=== PATIENT | female | born 1990 | race American Indian/Alaskan Native ===

== ENCOUNTER 2017-06-23 01:51 | Emergency (ER) | payer BC ==
--- NOTE | 2017-06-23 05:21 | Emergency Department Report ---
ED ENT HPI - General Chief complaint: Earache Stated complaint: RT EARACHE Time Seen by Provider: 06/23/17 05:17 Source: patient Mode of arrival: Ambulatory Limitations: No Limitations - History of Present Illness Initial comments: 26-year-old -[place] female comes in with a complaint of right ear pain that started last night. Patient reports that the earache woke her up from sleep. She has no past medical history currently takes no medication and has no known drug allergies. Patient did not take any pain medication prior to arrival. MD complaint: ear pain -: During the night Location: R ear Severity: severe Severity scale (0 -10): 10 Quality: stabbing, constant Consistency: constant Improves with: none Worsens with: none - Related Data Previous Rx's Medication Instructions Recorded Last Taken Type Amoxicillin/K Clav Tab [Augmentin 1 tab PO Q12HR #20 tab 06/23/17 Unknown Rx 875 mg] Ibuprofen 800 mg PO Q8H #30 tablet 06/23/17 Unknown Rx Allergies Allergy/AdvReac Type Severity Reaction Status Date / Time blueberry Allergy Hives Verified 06/23/17 02:11 ED Dental HPI - General Chief complaint: Earache Stated complaint: RT EARACHE Time Seen by Provider: 06/23/17 05:17 Source: patient Mode of arrival: Ambulatory Limitations: No Limitations - Related Data Previous Rx's Medication Instructions Recorded Last Taken Type Amoxicillin/K Clav Tab [Augmentin 1 tab PO Q12HR #20 tab 06/23/17 Unknown Rx 875 mg] Ibuprofen 800 mg PO Q8H #30 tablet 06/23/17 Unknown Rx Allergies Allergy/AdvReac Type Severity Reaction Status Date / Time blueberry Allergy Hives Verified 06/23/17 02:11 ED Review of Systems ROS: Stated complaint: RT EARACHE Other details as noted in HPI Constitutional: denies: chills, fever Eyes: denies: eye pain, eye discharge, vision change ENT: ear pain (right). denies: throat pain Respiratory: denies: cough, shortness of breath, wheezing Cardiovascular: denies: chest pain, palpitations Endocrine: no symptoms reported Gastrointestinal: denies: abdominal pain, nausea, diarrhea Genitourinary: denies: urgency, dysuria, discharge Musculoskeletal: denies: back pain, joint swelling, arthralgia Skin: denies: rash, lesions Neurological: denies: headache, weakness, paresthesias Psychiatric: denies: anxiety, depression Hematological/Lymphatic: denies: easy bleeding, easy bruising ED Past Medical Hx - Past Medical History Previous Medical History?: Yes Additional medical history: Lupus - Surgical History Past Surgical History?: Yes Additional Surgical History: tonsilectomy - Social History Smoking Status: Current Every Day Smoker Substance Use Type: Marijuana - Medications Home Medications: Home Medications Medication Instructions Recorded Confirmed Last Taken Type Amoxicillin/K Clav Tab [Augmentin 1 tab PO Q12HR #20 tab 06/23/17 Unknown Rx 875 mg] Ibuprofen 800 mg PO Q8H #30 tablet 06/23/17 Unknown Rx ED Physical Exam - General Limitations: No Limitations General appearance: alert, in no apparent distress, other (tearful) - Head Head exam: Present: atraumatic, normocephalic - Eye Eye exam: Present: normal appearance - ENT ENT exam: Present: mucous membranes moist - Expanded ENT Exam Expanded TM/Canal exam: Erythema: Right TM, Bulging: Right TM, Effusion: Right TM, Loss of Landmarks: Right TM Throat exam: Positive: normal inspection - Neck Neck exam: Present: normal inspection - Respiratory Respiratory exam: Present: normal lung sounds bilaterally. Absent: respiratory distress - Cardiovascular Cardiovascular Exam: Present: regular rate, normal rhythm. Absent: systolic murmur, diastolic murmur, rubs, gallop - GI/Abdominal GI/Abdominal exam: Present: soft, normal bowel sounds - Extremities Exam Extremities exam: Present: normal inspection - Back Exam Back exam: Present: normal inspection - Neurological Exam Neurological exam: Present: alert, oriented X3 - Psychiatric Psychiatric exam: Present: normal affect, normal mood - Skin Skin exam: Present: warm, dry, intact, normal color. Absent: rash ED Course Vital Signs 06/23/17 02:11 Temperature 98.5 F Pulse Rate 86 Respiratory 18 Rate Blood Pressure 119/81 O2 Sat by Pulse 99 Oximetry ED Medical Decision Making - Medical Decision Making Patient has been evaluated by this provider fast track. Patient has a severe otitis media of her right ear.. I discussed the patient we'll place her on antibiotics and pain medication. Also we'll refer patient to a primary care provider. Patient verbalize understanding Critical care attestation.: If time is entered above; I have spent that time in minutes in the direct care of this critically ill patient, excluding procedure time. ED Disposition Clinical Impression: Otitis media with effusion Qualifiers: Laterality: right Qualified Code(s): H65.91 - Unspecified nonsuppurative otitis media, right ear Disposition: TO HOME OR SELFCARE Is pt being admited?: No Does the pt Need Aspirin: No Condition: Stable Instructions: Otitis Media (ED) Additional Instructions: Take antibiotics as prescribed. Complete antibiotics as prescribed. Take pain medication as prescribed follow up with the primary care provider. Prescriptions: Amoxicillin/K Clav Tab [Augmentin 875 mg] 1 tab PO Q12HR #20 tab Ibuprofen 800 mg PO Q8H #30 tablet Referrals: CHARLES ROLDAN MD [Primary Care Provider] - 3-5 Days [facility] [Provider Group] - 3-5 Days Forms: Work/School Release Form(ED)
[2017-06-23] MEDS: MOTRIN PO ONE (05:29)
[2017-06-23 05:35] VITALS: BP 121/80
== END 2017-06-23 05:35 | disposition home or self-care (01) ==
LOC: ED 01:51
DX: H65.91 Unspecified nonsuppurative otitis media, right ear (principal); F17.200 Nicotine dependence, unspecified, uncomplicated; F12.10 Cannabis abuse, uncomplicated; Z90.89 Acquired absence of other organs; M32.9 Systemic lupus erythematosus, unspecified; Z91.018 Allergy to other foods
CPT/HCPCS: 99282

== ENCOUNTER 2017-12-12 17:58 | Emergency (ER) | payer SELFPAY ==
[2017-12-12 21:10] VITALS: BP 124/84
--- NOTE | 2017-12-12 22:30 | Emergency Department Report ---
ED ENT HPI - General Chief complaint: Sore Throat Stated complaint: BODY ACHES Time Seen by Provider: 12/12/17 21:51 Source: patient Mode of arrival: Ambulatory Limitations: No Limitations - History of Present Illness Initial comments: This is a 27-year-old -[place] female who presents with sore throat, cough, and body aches for 2 days. Patient states she wants will pool green party on Monday and woke up the next morning with sore throat and chest discomfort. Patient states she is taking [id number] Tylenol and TheraFlu with no improvement of symptoms. Patient states when she leans forward she spell in a herron of pressure to frontal low and back. Patient states her entire body is achy and she is also having some ringing in both ears. Patient denies shortness of breath, nausea or vomiting, difficulty swallowing, drooling. MD complaint: sore throat Onset/Timin -: days(s) Location: nose (congestion) Severity: moderate Severity scale (0 -10): 7 Quality: aching Consistency: intermittent Improves with: none Worsens with: swallowing, eating Associated Symptoms: fever, cough, sore throat, tinnitus, rhinorrhea. denies: hearing loss, discharge from ear - Related Data Previous Rx's Medication Instructions Recorded Last Taken Type Amoxicillin/K Clav Tab [Augmentin 1 tab PO Q12HR #20 tab 06/23/17 Unknown Rx 875 mg] Ibuprofen 800 mg PO Q8H #30 tablet 06/23/17 Unknown Rx Benzonatate [Tessalon Perle] 100 mg PO TID PRN #30 capsule 12/12/17 Unknown Rx Cetirizine HCl [Zyrtec] 10 mg PO DAILY #30 tablet 12/12/17 Unknown Rx Fluticasone [Flonase] 1 spray NS QDAY #1 bottle 12/12/17 Unknown Rx Guaifenesin/Pseudoephedrne HCl 1 each PO BID #10 tab.er.12h 12/12/17 Unknown Rx [Mucinex D ER 600-60 mg Tablet] Allergies Allergy/AdvReac Type Severity Reaction Status Date / Time blueberry Allergy Hives Verified 12/12/17 18:04 ED Dental HPI - General Chief complaint: Sore Throat Stated complaint: BODY ACHES Time Seen by Provider: 12/12/17 21:51 Source: patient Mode of arrival: Ambulatory Limitations: No Limitations - Related Data Previous Rx's Medication Instructions Recorded Last Taken Type Amoxicillin/K Clav Tab [Augmentin 1 tab PO Q12HR #20 tab 06/23/17 Unknown Rx 875 mg] Ibuprofen 800 mg PO Q8H #30 tablet 06/23/17 Unknown Rx Benzonatate [Tessalon Perle] 100 mg PO TID PRN #30 capsule 12/12/17 Unknown Rx Cetirizine HCl [Zyrtec] 10 mg PO DAILY #30 tablet 12/12/17 Unknown Rx Fluticasone [Flonase] 1 spray NS QDAY #1 bottle 12/12/17 Unknown Rx Guaifenesin/Pseudoephedrne HCl 1 each PO BID #10 tab.er.12h 12/12/17 Unknown Rx [Mucinex D ER 600-60 mg Tablet] Allergies Allergy/AdvReac Type Severity Reaction Status Date / Time blueberry Allergy Hives Verified 12/12/17 18:04 ED Review of Systems ROS: Stated complaint: BODY ACHES Other details as noted in HPI Constitutional: denies: chills, fever ENT: throat pain, congestion. denies: ear pain, dental pain, hearing loss, epistaxis Respiratory: cough. denies: shortness of breath, wheezing Cardiovascular: denies: chest pain, palpitations Gastrointestinal: denies: abdominal pain, nausea, diarrhea Musculoskeletal: myalgia (generalized body aches). denies: back pain, joint swelling, arthralgia Skin: denies: rash, lesions Neurological: denies: headache, weakness, paresthesias Psychiatric: denies: anxiety, depression ED Past Medical Hx - Past Medical History Previous Medical History?: No Additional medical history: Lupus - Surgical History Additional Surgical History: tonsilectomy - Social History Smoking Status: Current Every Day Smoker Substance Use Type: Alcohol, Marijuana - Medications Home Medications: Home Medications Medication Instructions Recorded Confirmed Last Taken Type Amoxicillin/K Clav Tab [Augmentin 1 tab PO Q12HR #20 tab 06/23/17 Unknown Rx 875 mg] Ibuprofen 800 mg PO Q8H #30 tablet 06/23/17 Unknown Rx Benzonatate [Tessalon Perle] 100 mg PO TID PRN #30 capsule 12/12/17 Unknown Rx Cetirizine HCl [Zyrtec] 10 mg PO DAILY #30 tablet 12/12/17 Unknown Rx Fluticasone [Flonase] 1 spray NS QDAY #1 bottle 12/12/17 Unknown Rx Guaifenesin/Pseudoephedrne HCl 1 each PO BID #10 tab.er.12h 12/12/17 Unknown Rx [Mucinex D ER 600-60 mg Tablet] ED Physical Exam - General Limitations: No Limitations General appearance: alert, in no apparent distress - ENT ENT exam: Present: normal orophraynx (erythematous posterior pharynx), mucous membranes moist, TM's normal bilaterally, other (turbinates mildly congested with clear discharge) - Neck Neck exam: Present: normal inspection - Respiratory Respiratory exam: Present: normal lung sounds bilaterally, other (cough worse on right). Absent: respiratory distress - Cardiovascular Cardiovascular Exam: Present: regular rate, normal rhythm. Absent: systolic murmur, diastolic murmur, rubs, gallop - GI/Abdominal GI/Abdominal exam: Present: soft, normal bowel sounds - Neurological Exam Neurological exam: Present: alert, oriented X3 - Psychiatric Psychiatric exam: Present: normal affect, normal mood - Skin Skin exam: Present: warm, dry, intact, normal color. Absent: rash ED Course Vital Signs 12/12/17 12/12/17 12/12/17 18:04 21:08 21:34 Temperature 99.8 F H 99.6 F 99.6 F Pulse Rate 98 H 96 H 96 H Respiratory 18 16 16 Rate Blood Pressure 130/87 124/84 Blood Pressure 124/84 [Left] O2 Sat by Pulse 99 97 Oximetry ED Medical Decision Making - Lab Data Lab Results 12/12/17 Range/Units 21:35 Influenza A (Rapid) Negative (Negative) Influenza B (Rapid) Negative (Negative) Group A Strep Rapid Negative (Negative) - Medical Decision Making Patient was examined by myself in fast track. Vitals are normal and patient is in no acute distress. Obtained a rapid strep and rapid flu. Rapid strep and flu negative. Patient informed of results. Start Flonase, benzonatate, Mucinex DM, and cetirizine. Plan discussed with patient to discharge home and treat outpatient. Patient discharged home in stable condition. Follow up with PCP in 2-3 days. Critical care attestation.: If time is entered above; I have spent that time in minutes in the direct care of this critically ill patient, excluding procedure time. ED Disposition Clinical Impression: Viral syndrome Upper respiratory infection Qualifiers: URI type: acute nasopharyngitis (common cold) Qualified Code(s): J00 - Acute nasopharyngitis [common cold] Disposition: - TO HOME OR SELFCARE Is pt being admited?: No Does the pt Need Aspirin: No Condition: Stable Instructions: Upper Respiratory Infection (ED), Viral Syndrome (ED) Additional Instructions: Increase fluid intake and rest. Wash hands frequently. Continue taking tylenol or ibuprofen to control fever. F/U with Primary Care Provider. Return to ER if fever, SOB, or difficulty breathing after 48 hours of supportive care. Prescriptions: Benzonatate [Tessalon Perle] 100 mg PO TID PRN #30 capsule PRN Reason: Cough Cetirizine HCl [Zyrtec] 10 mg PO DAILY #30 tablet Fluticasone [Flonase] 1 spray NS QDAY #1 bottle Guaifenesin/Pseudoephedrne HCl [Mucinex D ER 600-60 mg Tablet] 1 each PO BID # 10 tab.er.12h Referrals: KRISHNA FONTANEZ MD [Staff Physician] - 3-5 Days [facility] [Outside] - 3-[address] [facility] [Provider Group] - 3-5 Days Forms: Work/School Release Form(ED) Time of Disposition: 23:06 Print Language: BRUNEIAN
[2017-12-12] MEDS ORDERED: MOTRIN PO ONE ×2 (23:00)
== END 2017-12-12 23:24 | disposition home or self-care (01) ==
LOC: ED 17:58
DX: B34.9 Viral infection, unspecified (principal); J00 Acute nasopharyngitis [common cold]; Z91.018 Allergy to other foods; M32.9 Systemic lupus erythematosus, unspecified; F17.200 Nicotine dependence, unspecified, uncomplicated; Z90.89 Acquired absence of other organs
CPT/HCPCS: 87116; 87400; 87430; 99283

== ENCOUNTER 2019-01-15 01:35 | Emergency (ER) | payer SELFPAY ==
[2019-01-15 01:46] VITALS: BP 127/75
[2019-01-15 02:11] LABS: Basophils # (Auto) 0.1 K/mm3 (0.0-0.1); Basophils % (Auto) 1.1 % (0.0-1.8); Eosinophils # (Auto) 0.1 K/mm3 (0.0-0.4); Eosinophils % (Auto) 1.4 % (0.0-4.3); Hematocrit 38.6 % (30.3-42.9); Hemoglobin 12.7 gm/dl (10.1-14.3); Lymphocytes % (Auto) 50.6 % (13.4-35.0); Mean Corpuscular HGB Conc 33 % (30-34); Mean Corpuscular Volume 87 fl (79-97); Monocytes # (Auto) 0.4 K/mm3 (0.0-0.8); Monocytes % (Auto) 7.2 % (0.0-7.3); Platelet Count 215 K/mm3 (140-440); Red Blood Count 4.42 M/mm3 (3.65-5.03); Red Cell Distribution Width 13.2 % (13.2-15.2)
--- NOTE | 2019-01-15 03:19 | Emergency Department Report ---
ED Female HPI - General Chief complaint: Abdominal Pain Stated complaint: VAG BLEEDING 8 DAYS Time Seen by Provider: 01/15/19 03:04 Source: patient Mode of arrival: Ambulatory Limitations: No Limitations - History of Present Illness Initial comments: patient is a 28-year-old female presents the emergency room with complaints of vaginal bleeding for 8 days. She states it is very light and she is not having to wear tampons or pads. States that her menstrual cycles typically last 1 week. She states that she is concerned that her IUD may have moved. She denies any abdominal pain, nausea, vomiting, fever, chills, any other symptoms. she states she last saw her [facility] in April. Denies any past medical history or allergies medications. - Related Data Previous Rx's Medication Instructions Recorded Last Taken Type Amoxicillin/K Clav Tab [Augmentin 1 tab PO Q12HR #20 tab 06/23/17 Unknown Rx 875 mg] Ibuprofen 800 mg PO Q8H #30 tablet 06/23/17 Unknown Rx Benzonatate [Tessalon Perle] 100 mg PO TID PRN #30 capsule 12/12/17 Unknown Rx Cetirizine HCl [Zyrtec 10mg tab] 10 mg PO DAILY #30 tablet 12/12/17 Unknown Rx Fluticasone [Flonase] 1 spray NS QDAY #1 bottle 12/12/17 Unknown Rx Guaifenesin/Pseudoephedrne HCl 1 each PO BID #10 tab.er.12h 12/12/17 Unknown Rx [Mucinex D ER 600-60 mg Tablet] Allergies Allergy/AdvReac Type Severity Reaction Status Date / Time blueberry Allergy Hives Verified 12/12/17 18:04 ED Review of Systems ROS: Stated complaint: VAG BLEEDING 8 DAYS Other details as noted in HPI Comment: All other systems reviewed and negative ED Past Medical Hx - Past Medical History Previous Medical History?: Yes Additional medical history: Lupus - Surgical History Past Surgical History?: Yes Additional Surgical History: tonsilectomy - Social History Smoking Status: Current Every Day Smoker Substance Use Type: None - Medications Home Medications: Home Medications Medication Instructions Recorded Confirmed Last Taken Type Amoxicillin/K Clav Tab [Augmentin 1 tab PO Q12HR #20 tab 06/23/17 Unknown Rx 875 mg] Ibuprofen 800 mg PO Q8H #30 tablet 06/23/17 Unknown Rx Benzonatate [Tessalon Perle] 100 mg PO TID PRN #30 capsule 12/12/17 Unknown Rx Cetirizine HCl [Zyrtec 10mg tab] 10 mg PO DAILY #30 tablet 12/12/17 Unknown Rx Fluticasone [Flonase] 1 spray NS QDAY #1 bottle 12/12/17 Unknown Rx Guaifenesin/Pseudoephedrne HCl 1 each PO BID #10 tab.er.12h 12/12/17 Unknown Rx [Mucinex D ER 600-60 mg Tablet] ED Physical Exam - General Limitations: No Limitations General appearance: alert, in no apparent distress - Head Head exam: Present: atraumatic, normocephalic - Eye Eye exam: Present: normal appearance - ENT ENT exam: Present: mucous membranes moist - Respiratory Respiratory exam: Present: normal lung sounds bilaterally. Absent: respiratory distress, wheezes, rales, rhonchi, stridor, chest wall tenderness, accessory muscle use, decreased breath sounds, prolonged expiratory - Cardiovascular Cardiovascular Exam: Present: regular rate, normal rhythm, normal heart sounds. Absent: systolic murmur, diastolic murmur, rubs, gallop - GI/Abdominal GI/Abdominal exam: Present: soft, normal bowel sounds. Absent: distended, te nderness, guarding, rebound, rigid - External exam: Absent: erythema, swelling, lesions, lacerations, ecchymosis, bleeding Speculum exam: Present: other (press tender short goods: noa, tech, IUD strings are visible at the cervical os, cervix appears normal). Absent: erythema, vaginal discharge, cervical discharge, foreign body, tissue, laceration - Neurological Exam Neurological exam: Present: alert, oriented X3 - Psychiatric Psychiatric exam: Present: normal affect, normal mood - Skin Skin exam: Present: warm, dry, intact ED Course Vital Signs 01/15/19 01:45 Temperature 99 F Pulse Rate 95 H Respiratory 16 Rate Blood Pressure 127/75 [Left] O2 Sat by Pulse 100 Oximetry ED Medical Decision Making - Lab Data Result diagrams: 01/15/19 01:54 - Medical Decision Making patient is a 28-year-old female presents the emergency room with complaints of vaginal bleeding for 8 days. She states it is very light and she is not having to wear tampons or pads. States that her menstrual cycles typically last 1 week. She states that she is concerned that her IUD may have moved. She denies any abdominal pain, nausea, vomiting, fever, chills, any other symptoms. she states she last saw her [facility] in April. Denies any past medical history or allergies medications. vitals are normal. labs are normal. H/H normal. negative . pelvic examination performed and press tender short goods: marie latham, IUD strings are visible at the cervical os, cervix appears normal. advised pt to please follow up with your [facility] in the next 2-3 days. Return to the emergency room f or any new or worsening symptoms. Critical care attestation.: If time is entered above; I have spent that time in minutes in the direct care of this critically ill patient, excluding procedure time. ED Disposition Clinical Impression: Vaginal bleeding, IUD check up Disposition: TO HOME OR SELFCARE Is pt being admited?: No Does the pt Need Aspirin: No Condition: Stable Instructions: Menstruation (ED) Additional Instructions: Please follow up with your [facility] in the next 2-3 days. Return to the emergency room for any new or worsening symptoms. Referrals: your, [facility] [Other] - 2-3 Days Time of Disposition: 03:28 Print Language: TURKMEN
== END 2019-01-15 03:30 | disposition home or self-care (01) ==
LOC: ED 01:35
DX: N93.8 Other specified abnormal uterine and vaginal bleeding (principal)
CPT/HCPCS: 36415; 84703; 85025